=== PATIENT | male | born 1960 | race Caucasian/White ===

== ENCOUNTER 2024-07-28 10:07 | Emergency (ER) | payer SELFPAY ==
[2024-07-28 10:09] VITALS: BP 134/79; PULSE 83; RESP 16; TEMP 36.7; O2SAT 95
--- NOTE | 2024-07-28 10:29 | ED_ITS ---
HPI - URI/Sore Throat General Chief Complaint: Upper Respiratory Infection Stated Complaint: runny nose Time Seen by Provider: 07/28/24 10:29 Source: patient Mode of arrival: ambulatory Limitations: no limitations History of Present Illness HPI Narrative: 63-year-old male, smoker with recurrent sinus /ear infection since childhood presents to the ED with a 5 day history of -- nasal congestion. The nasal discharge in the postnasal drip is yellow/green. -- Enlarged cervical lymph nodes which are tender -- chest congestion. He has cough with mucopurulent sputum. -- Nocturnal fevers no chest pain or shortness of breath MD elicited complaint: fever, cough, nasal congestion and sinus pain Pertinent past history: tympanostony tubes ( history of ear tubes as a child) Onset (ago): day(s) ( 5 days) Consistency: intermittent Severity: moderate Description of mucous: yellow and green Able to tolerate fluids by mouth: Yes Exacerbating factors: nothing Relieving factors: nothing Associated symptoms: denies other symptoms, fever, nasal congestion and cough Treatments prior to arrival: none Related Data Allergies Allergy/AdvReac Type Severity Reaction Status Date / Time No Known Allergies Allergy Verified 07/28/24 10:20 Review of Systems Review of Systems: All systems reviewed & are unremarkable except as noted in HPI and below Constitutional: Constitutional: Reports as per HPI and Reports no additional constitutional complaints Eyes: Eyes: Reports as per HPI and Reports no additional eye complaints ENT: Reports system reviewed and no additional complaints, except as documented, Reports as per HPI and Reports nasal congestion Cardiovascular: Cardiovascular: Reports as per HPI and Reports no additional cardiovascular complaints Respiratory: Respiratory: Reports as per HPI, Reports no additional respiratory complaints, Reports chest congestion and Reports cough Gastrointestinal: Gastrointestinal: Reports as per HPI and Reports no additional gastrointestinal complaints Genitourinary: Genitourinary: Reports no additional male genitourinary complaints and Reports as per HPI Musculoskeletal: Musculoskeletal: Reports no additional musculoskeletal complaints and Reports as per HPI Integumentary/Breasts: Skin/Breast: Reports system reviewed and no additional complaints, except as docu and Reports as per HPI Neurologic: Reports system reviewed and no additional complaints, except as documented and Reports as per HPI Psychiatric: Psychiatric: Reports no additional psychiatric complaints and Reports as per HPI Endocrine: Endocrine: Reports no additional endocrine complaints and Reports as per HPI Hematologic/Lymphatic: Hematologic/Lymphatic: Reports no additional hematologic/lymphatic complaints and Reports as per HPI Allergic/Immunologic: Allergic/Immunologic: Reports no additional allergic/immunologic complaints and Reports as per HPI [facility] Past Medical History Medical History (Updated 07/28/24 @ 10:46 by Kevin Mcgovern MD) Recurrent sinusitis Exam Narrative: vitals are stable. Oxygen saturation of 95% on room air. Const: General: no acute distress Nutritional Appearance: well nourished Orientation/consciousness: patient oriented x3 Limitations: no limitations HENMT: Head: normal to inspection Ears: external ears normal and TM's normal bilaterally Face/Nose/Sinus: Normal external nose present Face and sinus: normal facial exam Mouth: Yes Normal oral and palatal mucosa present Throat: posterior oropharynx normal Other: No sinus tenderness. Eyes: Conjunctivae: conjunctivae normal Pupils: Equal, round and reactive pupils present EOM: EOMs intact bilaterally Neck: Neck: normal visual inspection, no lymphadenopathy and no meningeal signs Chest: Chest palpation & inspection: normal inspection of the chest Resp: Effort & Inspection: normal respiratory effort Auscultation: clear to auscultation bilaterally Cardio: Rate: regular rate Rhythm: regular rhythm GI: GI Palp: Yes Soft to palpation Auscultation: normal bowel sounds Other: No tenderness/ rigidity /rebound. : General: Yes no CVA tenderness Back/Spine/Pelvis: Back: no CVA tenderness Skin: General skin exam: normal color Rashes: no rashes Wounds: no wounds Neuro: General: patient oriented x3, moves all extremities, no meningeal signs, no focal motor deficits and CN's II-XI intact bilaterally Cranial nerves: Yes Nystagmus not present Speech: normal speech Gait exam (Neuro): Normal gait present Extrem: General: normal to inspection and no clubbing, cyanosis or edema Psych: Mental Status: mental status grossly normal Affect: normal affect Attitude: cooperative Course Course Emergency Course: Sinusitis bronchitis Vital Signs Vital signs: Vital Signs Temperature 36.7 C 07/28/24 10:09 Pulse Rate 83 07/28/24 10:09 Respiratory Rate 16 07/28/24 10:09 Blood Pressure 134/79 07/28/24 10:09 Pulse Oximetry 95 07/28/24 10:09 Oxygen Delivery Room Air 07/28/24 10:09 Temperature 36.7 C 07/28/24 10:09 Pulse Rate 83 07/28/24 10:09 Respiratory Rate 16 07/28/24 10:09 Blood Pressure 134/79 07/28/24 10:09 Pulse Oximetry 95 07/28/24 10:09 Oxygen Delivery Room Air 07/28/24 10:09 MDM - URI/Sore Throat MDM Narrative Medical decision making narrative: sinusitis bronchitis Differential Diagnosis Differential diagnosis: Likely upper respiratory infection Discharge Plan Discharge Clinical Impression: Bronchitis Sinusitis Qualifiers: Sinusitis location: unspecified location Chronicity: acute Recurrence: recurrent Qualified Code(s): J01.91 - Acute recurrent sinusitis, unspecified Patient Disposition: Home Condition: Stable Instructions: Antibiotic Form, Sinusitis (ED) Patient Language: Macedonian Prescriptions: New azithromycin [Zithromax] 250 mg tablet See Rx Instructions .ROUTE .COMPLEX Qty: 6 0RF Rx Instructions: For 250 mg dose pack: take 500 mg today (day 1), then 250 mg for 4 days (days 2-5) loratadine [Claritin] 10 mg tablet 10 mg PO DAILY Qty: 30 0RF Follow-up/Referrals: UNKNOWN,DOCTOR [Primary Care Provider] - Time of Disposition: 10:47
--- OUTSIDE RECORDS SUMMARY | 2024-07-28 11:31 | XMS_ITS | Clinical Summary ---
Author Organization [facility] Address [address] [place] [address] Phone Care Team Providers Care Secure Software Assessor Name Role Phone Provider, None Primary Care Provider Unavailabl e Provider, None Unavailable Unavailable Allergies No known active allergies Medications nicotine (NICODERM CQ) 14 MG/24HR TD PT24 1 Patch by Transdermal route every 24 hours. Active azithromycin 250 MG PO TABSIndications: Sinus infection 2 tab(s) daily for 1 day, then 1 tab(s) daily for days 2-5. 6 Tab 0 2 Active Additional Information Patient not taking.Reported on 03/12/2024 NICOTINE TD by Transdermal route. Active methylPREDNISolo ne (Medrol) 4 MG Tablet Therapy PackIndications: Acute recurrent pansinusitis Use as per instructions on package. 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 Gender Identity Not on file Sexual Orientation Not on file Last Filed Vital Signs Vital Sign Reading Time Taken Comments Blood Pressure 126/60 03/12/2024 9:35 AM OWNER MANAGER Pulse 120 03/12/2024 9:35 AM OWNER MANAGER Temperature 37.6 C (99.7 F) 03/12/2024 10:44 AM OWNER MANAGER Respiratory Rate 14 03/12/2024 9:35 AM OWNER MANAGER Oxygen Saturation 93% 03/12/2024 9:35 AM OWNER MANAGER Inhaled Oxygen Concentration - - Weight 77.1 kg (170 lb) 08/06/2021 1:09 PM CDT Height 175.3 cm (5' 9) 03/28/2011 11:10 AM OWNER MANAGER Body Mass Index - - Plan of Treatment Health Maintenance Due Date Last Done Comments Hepatitis C Virus (HCV) Screening 1961 TdaP Immunization 1961 Pneumococcal Immunization (5 0+ years) (1 of 2 - PCV) 1980 Cologuard 2006 Colonoscopy 2006 Colorectal Cancer Screening 2006 Immunochemical Fecal Occult Blood 2006 Zoster Immunization (1 of 2) 10/18/2011 PSA Discussion 2016 SARS-COV-2 Immunization ( - 2023- season) 2023 Influenza Immunization (Seas on Ended) 2024 Respiratory Syncytial Virus (RSV) Immunization (Adult) (1 - 1-dose 75+ series) 2036 Hepatitis B Immunization Aged Out No longer eligible based on patient's age to complete this topic Human Papillomavirus (HPV) Immunization Aged Out No longer eligible b ased on patient's age to complete this topic Meningococcal Immunization (ACWY) Aged Out No longer eligible based on patient's age to complete this topic Rotavirus Immunization Aged Out No lo nger eligible based on patient's age to complete this topic Care Teams Secure Software Assessor Relationship Specialty Start Date End Date Provider, None [place] PCP - General 08/06/21 Provider, None [place] 08/06/21
--- OUTSIDE RECORDS SUMMARY | 2024-07-28 12:49 | XMS_ITS | Clinical Summary ---
Author Organization [facility] Address [address] [place] [address] Care Team Providers Care Chief Design Drafter Name Role Phone No, Physician Primary Care Provider [phone] No, Physician Unavailable No, Physician Unavailable Allergies No known active allergies Medications HYDROcodone-julieta taminophen (NORCO) 5-325 mg per tabletIndicatio ns:Pain Take 1 tablet by mouth every 6 (six) hours as needed for pain 12 tablet 0 Active Additional Information Patient not taking.Reported on 03/01/2019 Active Problems No known active problems Social History Tobacco Use Types Packs/Day Years Used Date Smoking Tobacco: Every Day Cigarettes Smokeless Tobacco: Never Alcohol Use Standard Drinks/Week Comments Not Currently 0 (1 standard drink = 0.6 oz pur e alcohol) Personal Safety Answer Date Recorded Getting School Help Needed Not on file 02/08 Sex and Gender Information Value Date Recorded Sex Assigned at Not on file Legal Sex Male 10:55 AM LOAD CHECKER Gender Identity Not on file Sexual Orientation Not on file Obstetrics History Last Filed Vital Signs Vital Sign Reading Time Taken Comments Blood Pressure 102/70 07/26/2022 2:07 PM CDT Pulse 75 07/26/2022 2:07 PM CDT Temperature 36.3 C (97.3 F) 07/26/2022 2:07 PM CDT Respiratory Rate 18 07/26/2022 2:07 PM CDT Oxygen Saturation 98% 07/26/2022 2:07 PM CDT Inhaled Oxygen Concentration - - Weight 77.1 kg (170 lb) 07/26/2022 2:07 PM CDT Height 175.3 cm (5' 9) 07/26/2022 2:07 PM CDT Body Mass Index 25.1 07/26/2022 2:07 PM CDT Plan of Treatment Health Maintenance Due Date Last Done Comments Colon Cancer Screening-Colonoscopy 1961 Depression Screening 1961 Hepatitis C Screening 1961 Prostate Cancer Screening-PSA 1961 DTaP/Tdap/Td Vaccine (1 - Tdap) 1972 Hepatitis B Screening 10/18/1979 Regular Well Visit/Exam 18-64 10/18/1979 Pneumococcal vaccine <65 (1 of 2 - PCV) 1980 Zoster Vaccine (1 of 2) 10/18/2011 Influenza Vaccine (Season Ended) 2024 Care Teams Chief Design Drafter Relationship Specialty Start Date End Date No, Physician PCP - General 03/01/19 No, Physician 02/17/19 No, Physician 02/17/19
--- OUTSIDE RECORDS SUMMARY | 2024-07-28 12:49 | XMS_ITS | Referral Summary ---
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
--- OUTSIDE RECORDS SUMMARY | 2024-07-28 12:49 | XMS_ITS | Clinical Summary ---
Author Organization [facility] Address [address] [place] [address] Phone Care Team Providers Care Straightening Roll Operator Name Role Phone Provider, None Primary Care [...] on file Legal Sex Male 4:00 AM LAG SCREWER Gender Identity Not on file Sexual Orientation Not on file Last Filed Vital Signs Vital Sign Reading Time Taken Comments Blood Pressure 126/60 03/12/2024 9:35 AM LAG SCREWER Pulse 120 03/12/2024 9:35 AM LAG SCREWER Temperature 37.6 C (99.7 F) 03/12/2024 10:44 AM LAG SCREWER Respiratory Rate 14 03/12/2024 9:35 AM LAG SCREWER Oxygen Saturation 93% 03/12/2024 9:35 AM LAG SCREWER Inhaled Oxygen Concentration - - Weight 77.1 kg (170 lb) 08/06/2021 1:09 PM CDT Height 175.3 cm (5' 9) 03/28/2011 11:10 AM LAG SCREWER Body Mass Index - - Plan of [...] age to complete this topic Care Teams Straightening Roll Operator Relationship Specialty Start Date End Date Provider, None [place] PCP - General 08/06/21 Provider, None [place] 08/06/21
== END 2024-07-28 11:04 | disposition home or self-care (01) ==
LOC: CHSED 10:51
PROVIDERS: Emergency Provider Internal Medicine Critical Care Medicine; PCP Family Medicine
DX: J40 Bronchitis, not specified as acute or chronic (principal); J01.91 Acute recurrent sinusitis, unspecified; F17.210 Nicotine dependence, cigarettes, uncomplicated
CPT/HCPCS: 99283